=== PATIENT | female | born 1985 | race African-American/Black ===

== ENCOUNTER 2023-04-29 11:11 | Outpatient (CLI) | payer OTHER, SELFPAY ==
--- NOTE | 2023-04-29 14:16 | ECG_ITS ---
Measurements Intervals [place] Rate: 85 P: 48 GA: 170 QRS: 17 QRSD: 105 T: 23 QT: 363 QTc: 434 Interpretive Statements SINUS RHYTHM MINOR RV CONDUCTION ABNORMALITY WITHIN NORMAL LIMITS NO PREVIOUS ECG AVAILABLE FOR COMPARISON Electronically Signed On 04-29-2023 16:28:36 CDT by Hamlet Berry M.D.
[2023-04-29 15:05] LABS: Hematocrit 29.9 % (37.0-47.0); Hemoglobin 8.5 g/dL (12.0-15.0)
[2023-04-29 15:18] LABS: Alanine Aminotransferase 16 U/L (6-35); Alkaline Phosphatase 125 U/L (38-126); Anion Gap 6 mmol/L (8-16); Aspartate Amino Transferase 22 U/L (14-36); Bilirubin,Total 0.2 mg/dL (0.2-1.3); Blood Urea Nitrogen 11 mg/dL (7-17); Calcium 8.2 mg/dL (8.4-10.2); Carbon Dioxide 27 mmol/L (22-30); Chloride 104 mmol/L (98-107); Estimated Glomerular Filt Rate > 60; Glucose 80 mg/dL (65-110); Potassium 4.1 mmol/L (3.4-5.0); Sodium 137 mmol/L (137-145)
== END 2023-04-29 11:12 | disposition home or self-care (01) ==
PROVIDERS: Anesthesiology; PCP Physician Assistant; Visit Provider Obstetrics & Gynecology
DX: N92.0 Excessive and frequent menstruation with regular cycle (principal); I10 Essential (primary) hypertension; D64.9 Anemia, unspecified; Z01.818 Encounter for other preprocedural examination
CPT/HCPCS: 36415; 80053; 85014; 85018; 86850; 86900; 86901; 93005

== ENCOUNTER 2023-05-04 01:29 | Day surgery (SDC) | payer OTHER, SELFPAY ==
[2023-04-27 15:20] VITALS: BMI 52.8
--- NOTE | 2023-04-27 15:32 | PC.NURSE ---
Report to the Outpatient Waiting Room, entrance under the green pavilion located off [facility], at 0600 on 05/04/23. Planned Procedure Time: 0730. Time changes happen often and if your time is changed the preop area will call you the afternoon before. - You and your visitor will be asked to self-screen and do not enter if you have any COVID symptoms. - A mask is optional within the hospital at this time. Patients may have clear liquids (water, carbonated beverages, clear teas, apple juice) until 3 hours prior to surgery with a maximum of 20 ounces. - No food from midnight until time of surgery Take the following medications with a SIP of water the morning of surgery: BUPROPION AND AMLODIPINE DO NOT STOP ANY OF YOUR OTHER PRESCRIPTION MEDICATIONS PRIOR TO SURGERY ?EXCEPT THE FOLLOWING Medications to discontinue per physician N/A Date to take last dose N/A Please no make-up, nail english, hairspray, perfume, deodorant, or body powder the day of surgery. No jewelry (including any body piercings) or valuables the day of surgery, leave them at home. Please take a shower or bath the night before, or the morning of, surgery with an antibacterial soap. Wear comfortable, loose fitting clothing. - Jewelry must be removed prior to entering the operating room. Rings and piercings that are not removed may be cut off. - The hospital will not accept responsibility for valuables. - Please leave all valuables, including medications, at home the day of surgery. -Follow any additional instructions given to you from your surgeon. If you or anyone in your household have experienced Covid symptoms in the past week, please notify your surgeon or the nurse liaison at the phone number below for possible testing. Telephone instructions given to patient and asked if any additional questions and then verbalized understanding. Patient advised to call surgeon office or pre surgery nurse liaison [phone] if any additional questions.
--- NOTE | 2023-05-03 14:29 | WPDANESEPPF ---
Anes - Initial Pre Proc Eval Procedure: Operation Date: 05/04/23 07:30 Proposed Procedures p Total Laparoscopic Hysterectomy with Bilateral Salpingectomy - Tony Adams MD Date/Time: 05/03/23 14:29 Surgeon: Tony Adams MD Pre Op Diagnosis: MENORRHAGIA Patient Data Age: 37 Gender: F Height: 1.68 m Weight: 148.51 kg Allergies Allergy/AdvReac Type Severity Reaction Status Date / Time No Known Allergies Allergy Verified 04/27/23 15:14 Home Medications Medication Instructions Recorded Confirmed Type amlodipine 5 mg tablet 5 mg PO DAILY 04/27/23 04/27/23 History bupropion HCl 150 mg 24 hr tablet, 150 mg PO DAILY 04/27/23 04/27/23 History extended release ergocalciferol (vitamin D2) 1,250 1,250 mcg PO WEEKLY 04/27/23 04/27/23 History mcg (50,000 unit) capsule estradiol 2 mg tablet 2 mg PO HS 04/27/23 04/27/23 History ferrous sulfate 325 mg (65 mg 325 mg PO DAILY 04/27/23 04/27/23 History iron) tablet (FeroSul) venlafaxine 150 mg 150 mg PO HS 04/27/23 04/27/23 History capsule,extended release 24 hr Patient hx anesthesia problems: none Family hx anesthesia problems: none Results Review: All pre-operative results and documents have been reviewed as part of the pre-operative evaluation. [facility] Past Medical History Medical History (Updated 05/03/23 @ 14:30 by Juwan Cespedes MD) HTN (hypertension) Morbid obesity with BMI of 50.0-59.9, adult Social History Social History Smoking status: Never smoker Second hand tobacco smoke exposure: No Alcohol intake: never Substance use: never Living arrangements: with family Spiritual care concerns: No Anes - Eval Final PreProcedure Day of Procedure 05/03/23 14:29 Patient weight: super morbidly obese Heart: regular rate and rhythm Lungs: clear to auscultation and normal air movement Airway: Mallampati scale class II Neurological: alert and oriented Last oral intake: >/= 8 hours ASA classification: IV Emergent: no Anesthetic plan: proceed Anesthesia type and monitoring: general ETT Results Review: All pre-operative results and documents have been reviewed as part of the pre-operative evaluation. Informed Consent: The patient's anesthetic plan and its attendant risks and benefits were discussed with the patient/family/POA. Questions were solicited and answers provided to the satisfaction of the patient/family/POA.
[2023-05-04] VITALS (9 sets, daily range): BP systolic 115–153; BP diastolic 57–107; PULSE 69–100; RESP 14–24; TEMP 36.1–36.9; O2SAT 96–100
[2023-05-04] MEDS: ACETAMINOPHEN 500 MG TABLET 1000 MG PO (07:10)
[2023-05-04] MEDS: KETOROLAC 15 MG/ML VIAL (*BKC) IV PUSH (07:10)
[2023-05-04] MEDS: LACTATED RINGERS 1,000 ML 30 ML IV CONT ×2 (07:10→09:23)
--- NOTE | 2023-05-04 07:17 | WPDHPUPDATE1 ---
History and Physical Update Update Date/Time: 05/04/23 07:17 History and Physical has been reviewed, including an updated exam of the patient. There are NO changes in the patient's condition. Risks, benefits, and alternatives have been discussed and questions answered. Patient agrees to proceed with procedure.
[2023-05-04] MEDS: ceFAZolin SODIUM 1 GM VIAL 3 GM IRRIGATION (07:31)
[2023-05-04] MEDS: ceFAZolin 3 GM/D5W 100 ML 100 ML IVPB (07:31)
--- NOTE | 2023-05-04 09:29 | W.PM.PROC2 ---
Procedure Note - Detailed Date of Procedure 05/04/23 Pre-op Diagnosis MENORRHAGIA Post-op Diagnosis Same Procedure Performed Total laparoscopic hysterectomy. Surgeon Tony Adams MD Anesthesia General Indications Menorrhagia Findings mildly enlarged uterus, normal-appearing tubes and ovaries. Normal vulva , vagina and cervix. Description of Procedure This patient was taken to the operating room. She was prepped and draped in the dorsal lithotomy position after induction of general anesthesia. The uterine manipulator and Corine cup were placed. This was done with a speculum and tenaculum. The speculum was placed. The cervix was grasped with a tenaculum. The stay sutures were placed at 3 and 9:00 a.m.. The stay sutures of 0 Vicryl were brought through the appropriately sized Corine cup. The tip of the LAUREN manipulator was placed in the intrauterine cavity. The cup was slid into place around the cervix and into the fornices. It was locked into place. The sutures were then wrapped around the handle and tied under tension. A 5 mm skin incision was made in the left upper quadrant the abdomen. A 5 mm trocar was inserted into the intrauterine cavity under direct visualization of the scope. Pneumoperitoneum was achieved. A left lower quadrant 11 mm incision was made with scalpel. An 11 mm trocar was inserted into the anterior abdominal cavity under direct visualization the scope. A 5 mm infraumbilical incision was made with a scalpel and a 5 mm trocar was inserted the intra-abdominal cavity under direct visualization of the scope. Bilateral ureteral lysis was performed. This was done from the pelvic brim down to the uterine artery. This was done with careful dissection using sharp and blunt dissection. The fallopian tubes were removed bilaterally. The mesosalpinx around the fallopian tubes were cauterized transected with LigaSure cautery. This was done in a bilateral fashion from the ovary to the uterine cornua. The fallopian tube was transected at the uterine cornu and amputated. The tube was taken out the left lower quadrant trocar site. In a stepwise fashion along the lateral aspects of the uterus the round ligament and broad ligaments were cauterized transected down to the level of the uterine arteries. A bladder flap was created in the bladder was moved distally to the end of the cervix and over the Corine cup. The bilateral uterine arteries were cauterized and transected. Colpotomy was then performed. In a circumferential fashion the vagina was transected using unipolar cautery. The incision was made down on the Corine cup. The uterus and cervix were taken out through the vagina. A pneumo occluder was placed in the vagina. The vaginal cuff was closed with a 0 V lock suture in a running fashion. The pelvis was irrigated with copious amounts antibiotic irrigation. The ureters were again examined and found to be intact and flowing freely under the uterine arteries into the bladder. The bladder was intact. It was examined directly. The vagina was irrigated with Betadine solution after removal of the Pneumo occluder. The patient was taken to recovery room. She was stable condition. Sponge lap and needle counts were correct x2. Estimated Blood Loss 75 Drains Yes Packing No Pathology Yes Complications No immediate complications Condition Stable Disposition Floor
[2023-05-04] MEDS: fentaNYL CITRATE INJ (*CRX) 100 MCG/2 ML VIAL 25 MCG IV PUSH ×4 (09:54→10:26)
[2023-05-04] MEDS: KETOROLAC 30 MG/ML VIAL (*BKC) IV PUSH (11:00)
[2023-05-04] MEDS: DEXTROSE 5%/0.45% SOD CHL 1,000 ML 125 ML IV CONT (11:00)
[2023-05-04] MEDS: HYDROcodone/acetaminophen (*CRX) 10-325 MG TABLET 1 TAB PO ×2 (15:22→22:33)
[2023-05-04] MEDS: SIMETHICONE 80 MG TAB.CHEW PO (15:22)
[2023-05-04] MEDS: ONDANSETRON INJ 4 MG/2 ML VIAL IV PUSH (18:35)
[2023-05-04] MEDS: VENLAFAXINE HCL XR 75 MG CAP.ER.24H 150 MG PO (22:34)
[2023-05-05 00:28] VITALS: BP 138/81; PULSE 94; RESP 20; TEMP 36.8; O2SAT 100
--- NOTE | 2023-05-06 09:59 | PC.NURSE ---
Paper documentation exists on this patient due to [employer] downtime on 05/05/23 from 0030 to 1900.
[2023-05-06 12:52] LABS: Hematocrit 26.7 % (37.0-47.0); Hemoglobin 7.9 g/dL (12.0-15.0); Mean Corpuscular HGB Conc 29.6 g/dl (32-36); Mean Corpuscular Hemoglobin 21.9 pg (26-34); Mean Corpuscular Volume 74.2 fl (80-100); Mean Platelet Volume 10.2 fl (7.4-10.4); Platelet Count Result 368 k/mm3 (150-375)
[2023-05-06 12:53] LABS: Basophils Percent Auto 0.1 % (0.2-1.2); Immature Granulocyte Absolute 0.05 K/mm3 (0.00-0.031); Immature Granulocyte Percent A 0.4 % (0-0.5); Lymphocytes Percent Auto 19.4 % (18.3-44.2); Monocytes Absolute Auto 0.7 K/mm3 (0.1-0.6); Monocytes Percent Auto 5.1 % (2.6-8.5); Neutrophils Absolute Auto 10.5 K/mm3 (1.3-6.7)
== END 2023-05-05 15:22 | disposition home or self-care (01) ==
LOC: ANHSURGERY 06:07 → ANHOB2 10:40
PROVIDERS: PCP Physician Assistant; Visit Provider Obstetrics & Gynecology
PROC: 0UT9FZZ Resection of Uterus, Via Natural or Artificial Opening With Percutaneous Endoscopic Assistance (ICD-10-PCS; CPT 58571; principal; 2023-05-04 07:30)
DX: N92.0 Excessive and frequent menstruation with regular cycle (principal); D25.1 Intramural leiomyoma of uterus; N83.8 Other noninflammatory disorders of ovary, fallopian tube and broad ligament; N72 Inflammatory disease of cervix uteri; I10 Essential (primary) hypertension; E66.01 Morbid (severe) obesity due to excess calories; Z68.43 Body mass index [BMI] 50.0-59.9, adult
CPT/HCPCS: 58571; 36415; 85025; 88307; 99199; A9270; J0690; J1100; J1170; J1885; J2250; J2405; J2704; J2710; J3010; J7030; J7120